=== PATIENT | male | born 1940 | race Caucasian/White ===

== ENCOUNTER 2017-12-23 12:12 | Inpatient (IN) | payer MEDICARE, OTHER ==
[2017-12-23] MEDS ORDERED: ALBUTEROL/IPRATROPIUM 1 VIAL SOL ONE (12:45)
[2017-12-23] MEDS ORDERED: ONDANSETRON HCL 4 MG/2 ML SOL ONE (13:01)
[2017-12-23] MEDS ORDERED: SODIUM CHLORIDE 0.9% 1000ML 1,000 ML IV ONE (13:13)
[2017-12-23] MEDS ORDERED: ONDANSETRON HCL 4 MG/2 ML SOL IV ONE (13:13)
[2017-12-23] MEDS ORDERED: CEFTRIAXONE 1 GM PDS 2 GM in SODIUM CHLORIDE 0.9% 100 ML 100 ML IV ONE (13:14)
[2017-12-23] MEDS ORDERED: SODIUM CHLORIDE 0.9% 50 ML 25 ML IV PRN (13:14)
[2017-12-23] MEDS ORDERED: ALBUTEROL/IPRATROPIUM 1 VIAL SOL INH ONE (13:15)
[2017-12-23 13:49] LABS: HEMATOCRIT 42 % (39-53); HEMOGLOBIN 13.3 gm/dl (13.5-17.7); MEAN CORPUSCULAR HEMOGLOBIN 27.8 pg (27.0-32.0); MEAN CORPUSCULAR VOLUME 87 fL (80-100)
[2017-12-23 13:58] LABS: TROP I < 0.017 ng/ml (0.000-0.056)
[2017-12-23 14:00] LABS: LACTIC ACID 1.9 mMol/L (0.0-2.0)
[2017-12-23 14:00] LABS: APPEARANCE,URINE Slightly Cloudy; BILIRUBIN,URINE NEGATIVE (NEGATIVE); COLOR,URINE Light yellow; GLUCOSE, URINE (UA) NEGATIVE (NEGATIVE); KETONES,URINE NEGATIVE (NEGATIVE); LEUKOCYTE ESTERASE ,URINE TRACE (NEGATIVE); NITRATE,URINE NEGATIVE (NEGATIVE); OCCULT BLOOD,URINE 3+ (NEG-TRACE); PH,URINE 7.5; UROBILINOGEN,URINE 0.2 (0.2-1.0 EU)
[2017-12-23 14:11] LABS: BACTERIA RARE (< 1+); CRYSTALS NEGATIVE (0-3 AVE/HPF); EPITHELIAL CELLS 0-1 (SQUAMOUS); RBC,URINE 100-150 (0-3AV/HPF)
[2017-12-23] MEDS ORDERED: CEFTRIAXONE 1 GM PDS ONE (14:26)
[2017-12-23] MEDS ORDERED: ACETAMINOPHEN 500 MG 500 MG TAB ONE (14:26)
[2017-12-23] MEDS ORDERED: VANCOMYCIN HCL 500 MG PDS 1,000 MG in SODIUM CHLORIDE 0.9% 250 ML 250 ML IV ONE (15:17)
[2017-12-23 15:24] LABS: BAND NEUTROPHILS % (MANUAL) 4 %; BASOPHILS % (MANUAL) 0 % (0-3); EOSINOPHILS % (MANUAL) 1 % (0-9); LYMPHOCYTES % (MANUAL) 10 % (10-50); MONOCYTES % (MANUAL) 1 % (0-12); NEUTROPHILS % (MANUAL) 84 % (37-80); NORMAL RBCS PRESENT
[2017-12-23] MEDS ORDERED: VANCOMYCIN HYDROCHLORIDE 500 MG PDS IV ONE ×2 (16:07→22:12)
[2017-12-23] MEDS ORDERED: LORATADINE 10 MG TAB PO PRN (18:14)
[2017-12-23] MEDS ORDERED: ALBUTEROL HFA 60 PUFF/INHALER INH PRN (18:14)
[2017-12-23] MEDS ORDERED: ALBUTEROL NEB SOL 2.5MG/3ML 1 VIAL SOL NEB PRN (18:14)
[2017-12-23] MEDS: SODIUM CHLORIDE 0.9% 1000ML 1,000 ML IV SCH (18:25)
[2017-12-23] MEDS: ACETAMINOPHEN 325 MG PO PRN (19:56)
[2017-12-23] MEDS: RIVAROXABAN 10 MG TAB PO SCH (20:02)
[2017-12-23] MEDS: TEMAZEPAM 15MG 15 MG CAP PO PRN (20:03)
[2017-12-23] MEDS ORDERED: VANCOMYCIN HCL 500 MG PDS 1,000 MG in SODIUM CHLORIDE 0.9% 250 ML 250 ML IV SCH (21:30)
[2017-12-23] MEDS ORDERED: SODIUM CHLORIDE 0.9% 250 ML 250 ML IV ONE (22:12)
[2017-12-24] MEDS: ACETAMINOPHEN 325 MG PO PRN ×3 (03:51→21:26)
[2017-12-24] MEDS: SODIUM CHLORIDE 0.9% 1000ML 1,000 ML IV SCH (06:13)
[2017-12-24] MEDS ORDERED: VANCOMYCIN HCL 500 MG PDS 1,000 MG in SODIUM CHLORIDE 0.9% 250 ML 250 ML IV SCH (06:30)
[2017-12-24 07:44] LABS: CALCIUM 7.7 mg/dl (8.5-10.1); CARBON DIOXIDE 25.7 mEq/L (21-32); CREATININE 1.45 mg/dl (0.80-1.30); POTASSIUM 3.5 mMol/L (3.5-5.1)
[2017-12-24 08:12] LABS: BASOPHILS % (AUTO) 1 % (0-3); EOSINOPHILS % (AUTO) 0 % (0-9); HEMATOCRIT 38 % (39-53); HEMOGLOBIN 11.7 gm/dl (13.5-17.7); LYMPHOCYTES % (AUTO) 12.9 % (10-50); MEAN CORPUSCULAR HEMOGLOBIN 27.5 pg (27.0-32.0); MEAN CORPUSCULAR HGB CONC 31.2 gm/dl (32.0-36.0); MEAN CORPUSCULAR VOLUME 88 fL (80-100); MONOCYTES % (AUTO) 5.5 % (0-12); NEUTROPHILS % (AUTO) 80.5 % (37-80)
[2017-12-24 08:34] LABS: ALBUMIN 2.9 gm/dl (3.4-5.0); BILIRUBIN,TOTAL 0.6 mg/dl (0.2-1.0); TOTAL PROTEIN 6.8 gm/dl (6.4-8.2)
[2017-12-24] MEDS: ASPIRIN EC 81 MG PO SCH (09:55)
[2017-12-24] MEDS: POTASSIUM CHLORIDE 10 MEQ TER PO SCH (09:55)
[2017-12-24] MEDS: FLUOXETINE HYDROCHLORIDE 10 MG CAP PO SCH (09:55)
[2017-12-24] MEDS: FUROSEMIDE 40 MG TAB PO SCH ×2 (09:56→14:46)
[2017-12-24] MEDS: LOSARTAN POTASSIUM 50 MG TAB PO SCH (09:56)
[2017-12-24] MEDS: ALLOPURINOL 100 MG TAB PO SCH (09:56)
[2017-12-24] MEDS: CIPROFLOXACIN HCL 500 MG TAB PO SCH ×2 (09:56→21:13)
[2017-12-24] MEDS ORDERED: VANCOMYCIN HCL 500 MG PDS 1,500 MG in SODIUM CHLORIDE 0.9% 500 ML 500 ML IV SCH (10:30)
[2017-12-24] MEDS ORDERED: CEFTRIAXONE 1 GM PDS 1 GM in SODIUM CHLORIDE 0.9% 50 ML 50 ML IV SCH (11:00)
[2017-12-24] MEDS: SODIUM CHLORIDE 0.9% FLUSH 10 ML SOL IV SCH ×2 (14:47→21:13)
[2017-12-24] MEDS: RIVAROXABAN 10 MG TAB PO SCH (21:13)
[2017-12-24] MEDS: TEMAZEPAM 15MG 15 MG CAP PO PRN (21:26)
[2017-12-25] MEDS: SODIUM CHLORIDE 0.9% FLUSH 10 ML SOL IV SCH (05:58)
[2017-12-25 07:20] LABS: CALCIUM 7.9 mg/dl (8.5-10.1); CARBON DIOXIDE 26.7 mEq/L (21-32); CREATININE 1.49 mg/dl (0.80-1.30); POTASSIUM 3.6 mMol/L (3.5-5.1)
[2017-12-25 07:30] LABS: BASOPHILS % (AUTO) 1 % (0-3); EOSINOPHILS % (AUTO) 2 % (0-9); HEMATOCRIT 36 % (39-53); HEMOGLOBIN 11.4 gm/dl (13.5-17.7); LYMPHOCYTES % (AUTO) 17.2 % (10-50); MEAN CORPUSCULAR HEMOGLOBIN 27.6 pg (27.0-32.0); MEAN CORPUSCULAR HGB CONC 31.4 gm/dl (32.0-36.0); MEAN CORPUSCULAR VOLUME 88 fL (80-100); MONOCYTES % (AUTO) 5.6 % (0-12); NEUTROPHILS % (AUTO) 74.9 % (37-80)
[2017-12-25 08:50] VITALS: BP 117/70; PULSE 73; RESP 16; TEMP 96.8; O2SAT 97
[2017-12-25] MEDS: CIPROFLOXACIN HCL 500 MG TAB PO SCH (08:53)
[2017-12-25] MEDS: LOSARTAN POTASSIUM 50 MG TAB PO SCH (08:53)
[2017-12-25] MEDS: POTASSIUM CHLORIDE 10 MEQ TER PO SCH (08:53)
[2017-12-25] MEDS: ASPIRIN EC 81 MG PO SCH (08:53)
[2017-12-25] MEDS: ALLOPURINOL 100 MG TAB PO SCH (08:54)
[2017-12-25] MEDS: FLUOXETINE HYDROCHLORIDE 10 MG CAP PO SCH (08:54)
[2017-12-25] MEDS: FUROSEMIDE 40 MG TAB PO SCH (08:54)
== END 2017-12-25 10:25 | disposition home or self-care (01) | DRG 690 ==
LOC: ED 12:12 → ACUTE CARE 16:13 → UNDOADMIN 16:29 → ACUTE CARE 16:50
PROVIDERS: ADMIT Family Medicine; ATTEND Family Medicine
DX: N39.0 Urinary tract infection, site not specified (principal); A41.9 Sepsis, unspecified organism; R06.02 Shortness of breath; R39.198 Other difficulties with micturition; E66.01 Morbid (severe) obesity due to excess calories; I10 Essential (primary) hypertension; I48.0 Paroxysmal atrial fibrillation; Z98.890 Other specified postprocedural states; R60.9 Edema, unspecified; E11.9 Type 2 diabetes mellitus without complications
CPT/HCPCS: 36415; 71045; 80048; 80053; 81001; 82962; 83880; 84484; 85007; 85025; 85027; 87040; 87088; 93005; 96365; 96366; 96374; 99070; 99284; 99285; 99291; J0696; J2405; J3370; J7613; A9270; A9270-GY

== ENCOUNTER 2018-07-27 17:00 | Emergency (ER) | payer MEDICARE, OTHER ==
[2018-07-27 17:11] VITALS: RESP 16; TEMP 97
[2018-07-27 18:00] LABS: HEMOGLOBIN 8.5 gm/dl (13.5-17.7); MEAN CORPUSCULAR HEMOGLOBIN 24.4 pg (27.0-32.0); MEAN CORPUSCULAR HGB CONC 31.1 gm/dl (32.0-36.0)
[2018-07-27 19:15] VITALS: BP 129/64; PULSE 66; O2SAT 98
== END 2018-07-27 19:16 | disposition home or self-care (01) | DRG 812 ==
LOC: ED 17:00
DX: D64.9 Anemia, unspecified (principal); S80.12XA Contusion of left lower leg, initial encounter; E11.9 Type 2 diabetes mellitus without complications
CPT/HCPCS: 36415; 85027; 99282; 99283

== ENCOUNTER 2018-07-30 12:20 | Inpatient (IN) | payer MEDICARE, OTHER ==
[2018-07-30] MEDS: SODIUM CHLORIDE 0.9% FLUSH 10 ML SOL IV SCH ×2 (13:30→20:09)
[2018-07-30 14:59] LABS: ABO B; ANTIBODY SCREEN Negative; RH TYPE Positive
[2018-07-30 15:00] LABS: UNIT TYPE O POSITIVE
[2018-07-30] MEDS ORDERED: FUROSEMIDE 40 MG SOL IV ONE (15:00)
[2018-07-30] MEDS ORDERED: ALBUTEROL HFA 60 PUFF/INHALER INH PRN (19:10)
[2018-07-30] MEDS ORDERED: LORATADINE 10 MG TAB PO PRN (19:10)
[2018-07-30] MEDS ORDERED: TADALAFIL 10 MG PO PRN (19:10)
[2018-07-30] MEDS ORDERED: ALBUTEROL NEB SOL 2.5MG/3ML 1 VIAL SOL NEB PRN (19:10)
[2018-07-30] MEDS ORDERED: TEMAZEPAM 15MG 15 MG CAP PO PRN (20:47)
[2018-07-30] MEDS ORDERED: RIVAROXABAN 10 MG TAB PO SCH (21:00)
[2018-07-30] MEDS: BUDESONIDE/FORMOTEROL 160/4.5 AER INH SCH (21:10)
[2018-07-30] MEDS: DOXYCYCLINE 100 MG TAB PO SCH (21:10)
[2018-07-31] MEDS: SODIUM CHLORIDE 0.9% FLUSH 10 ML SOL IV SCH ×2 (05:26→14:34)
[2018-07-31 07:08] LABS: BASOPHILS % (AUTO) 1 % (0-3); EOSINOPHILS % (AUTO) 2 % (0-9); HEMATOCRIT 29 % (39-53); HEMOGLOBIN 9.1 gm/dl (13.5-17.7); LYMPHOCYTES % (AUTO) 31.4 % (10-50); MEAN CORPUSCULAR HEMOGLOBIN 24.4 pg (27.0-32.0); MEAN CORPUSCULAR HGB CONC 31.2 gm/dl (32.0-36.0); MONOCYTES % (AUTO) 10.3 % (0-12); NEUTROPHILS % (AUTO) 55.7 % (37-80)
[2018-07-31 07:10] LABS: CALCIUM 8.3 mg/dl (8.5-10.1); CARBON DIOXIDE 26.5 mEq/L (21-32); CREATININE 1.3 mg/dl (0.80-1.30); POTASSIUM 3.2 mMol/L (3.5-5.1)
[2018-07-31 07:23] LABS: MEAN CORPUSCULAR VOLUME 78 fL (80-100)
[2018-07-31 07:24] LABS: ANISOCYTOSIS SLIGHT AMT; POIKILOCYTOSIS SLIGHT AMT
[2018-07-31 07:25] LABS: OVALOCYTES PRESENT
[2018-07-31 07:26] LABS: HYPOCHROMASIA SLIGHT AMT
[2018-07-31] MEDS: BUDESONIDE/FORMOTEROL 160/4.5 AER INH SCH (08:41)
[2018-07-31] MEDS: DOXYCYCLINE 100 MG TAB PO SCH (08:42)
[2018-07-31] MEDS: FUROSEMIDE 40 MG TAB PO SCH ×2 (08:42→14:46)
[2018-07-31] MEDS ORDERED: FLUOXETINE HYDROCHLORIDE 10 MG CAP PO SCH (09:00)
[2018-07-31] MEDS ORDERED: ALLOPURINOL 100 MG TAB PO SCH (09:00)
[2018-07-31] MEDS ORDERED: POTASSIUM CHLORIDE 10 MEQ TER PO SCH (09:00)
[2018-07-31] MEDS ORDERED: LOSARTAN POTASSIUM 50 MG TAB PO SCH (09:00)
[2018-07-31] MEDS ORDERED: ASPIRIN EC 81 MG PO SCH (09:00)
[2018-07-31 09:05] LABS: UNIT TYPE O POSITIVE
[2018-07-31 09:06] LABS: UNIT TYPE O POSITIVE
[2018-07-31] MEDS ORDERED: FUROSEMIDE 20mg SOL IV ONE (11:00)
[2018-07-31 14:49] VITALS: TEMP 98.5
[2018-07-31 16:07] VITALS: BP 169/81; PULSE 88; RESP 24; O2SAT 97
== END 2018-07-31 18:15 | disposition home or self-care (01) | DRG 812 ==
LOC: ACUTE CARE 12:34
PROVIDERS: ADMIT Family Medicine; ATTEND Family Medicine
PROC: 30233N1 Transfusion of Nonautologous Red Blood Cells into Peripheral Vein, Percutaneous Approach (ICD-10-PCS; principal; 2018-07-30)
PROC: 30233N1 Transfusion of Nonautologous Red Blood Cells into Peripheral Vein, Percutaneous Approach (ICD-10-PCS; 2018-07-31)
DX: D64.9 Anemia, unspecified (principal); I10 Essential (primary) hypertension; Z79.01 Long term (current) use of anticoagulants; Z95.2 Presence of prosthetic heart valve; I48.0 Paroxysmal atrial fibrillation; R06.02 Shortness of breath; E11.9 Type 2 diabetes mellitus without complications; S80.12XA Contusion of left lower leg, initial encounter
CPT/HCPCS: 36415; 71046; 80048; 82962; 84484; 85018; 85025; 86850; 86900; 86901; 86920; 94640; 99070; J1940; J7613; P9016; A9270; A9270-GY